=== PATIENT | female | born 1955 | race Caucasian/White ===

== ENCOUNTER 2017-10-22 10:59 | Outpatient (CLI) | payer OTHER | END 2017-10-22 11:00 | disposition home or self-care (01) | LOC: BICMAMMO 10:59 | PROVIDERS: ATTEND Family Medicine | DX: Z12.31 Encounter for screening mammogram for malignant neoplasm of breast (principal); Z80.3 Family history of malignant neoplasm of breast | CPT/HCPCS: 77063; 77067 ==

== ENCOUNTER 2020-05-31 06:42 | Outpatient (CLI) | payer MEDICARE, OTHER ==
[2020-06-01 03:05] LABS: SARS-CoV-2 MS2 Positive; SARS-CoV-2 N Gene Negative; SARS-CoV-2 S Gene Negative; SARS-CoV-2 by NAA Not Detected (NotDetected); SARS-CoV-2 orf1ab Negative
== END 2020-05-31 06:43 | disposition home or self-care (01) ==
LOC: LABBT 06:42
PROVIDERS: ATTEND Ophthalmology Retina Specialist
DX: H54.7 Unspecified visual loss (principal); Z20.828 Contact with and (suspected) exposure to other viral communicable diseases
CPT/HCPCS: 87635; U0003

== ENCOUNTER 2020-06-05 08:56 | Day surgery (SDC) | payer MEDICARE, OTHER ==
[2020-06-04 10:22] VITALS: BMI 39.1
[~2020-06-05 08:56] MED LIST: EPINEPHrine 0.3 MG in Ophthalmic Irrigation Solution 500 ML IRR SCH
[2020-06-05] MEDS ORDERED: Cyclopentolate 1% Opth Drop 2 ML BOT ONE ×2 (09:20→09:27)
[2020-06-05] MEDS ORDERED: Phenylephrine 2.5% Ophth Soln 5 ML BOT ONE ×2 (09:20→09:26)
[2020-06-05] MEDS ORDERED: PHENYLEPHRINE-NS 100 MCG/ML 10 ML SYRINGE ONE (09:26)
[2020-06-05] MEDS ORDERED: PROPOFOL 20 ML ONE (09:56)
[2020-06-05] MEDS ORDERED: Midazolam HCl 2 mg/2 ml Vial ONE (09:56)
[2020-06-05] MEDS ORDERED: Maxitrol 0.1% Opth Oint 3.5 GM TUBE ONE (11:39)
[2020-06-05] MEDS ORDERED: Bupivacaine PF 0.75% SDV 10 ML ONE (11:39)
[2020-06-05] MEDS ORDERED: Lidocaine 4% PF 5 ML AMP ONE (11:39)
[2020-06-05] MEDS ORDERED: CEFAZOLIN 1 GM VIAL ONE (11:39)
[2020-06-05] MEDS ORDERED: Triamcinolone 40 MG/ML VIAL ONE (11:39)
[2020-06-05] MEDS ORDERED: Lidocaine 1% PF 5 ML VIAL ONE (11:39)
[2020-06-05] MEDS ORDERED: Indocyanine Green 25 MG/10 ML VIAL ONE (11:39)
--- NOTE | 2020-06-06 07:54 | OP ---
DATE OF PROCEDURE: 06/05/2020 PREOPERATIVE DIAGNOSES: 1. Tractional retinal detachment, right eye. 2. Epiretinal membrane, right eye. POSTOPERATIVE DIAGNOSES: 1. Tractional retinal detachment, right eye. 2. Epiretinal membrane, right eye. PROCEDURES PERFORMED: 1. 25-gauge pars plana vitrectomy, right eye. 2. Tractional retinal detachment repair, right eye. 3. Epiretinal membrane removal, right eye. 4. Panretinal photocoagulation, Endolaser, right eye. ESTIMATED BLOOD LOSS: None. SPECIMENS REMOVED: None. COMPLICATIONS: None. ANESTHESIA: MAC with sub-Tenon's block. DESCRIPTION OF PROCEDURE: The patient was identified in the preoperative holding area, the correct eye being the right eye was marked for surgery. The patient was taken to the operating room, where MAC anesthesia was induced. The right eye was prepped and draped in the usual sterile ophthalmic fashion for surgery. A wire-clip lid speculum was placed. An inferonasal conjunctival peritomy was fashioned with Mark scissors for administration of sub-Tenon's block. The block consisted of 1:1 ratio of 4% lidocaine and 0.75% Marcaine. Total of 5 mL was administered. A standard 25-gauge pars plana vitrectomy platform was fashioned with trocars placed approximately 4 mm from the limbus. The infusion was noted to be within the vitreous cavity prior to being turned on to an infusion pressure of 30 mmHg. The light pipe and microvitrector were introduced in the eye under visualization of the BIOM viewing system. macular tractional detachment as well as nasal tractional retinal detachment was noted. This was caused by proliferative diabetic retinopathy. A careful core and peripheral shave vitrectomy were performed to the safest extent possible. The microvitrector was used to remove any detachment from the vitreous to the fullest extent possible. The gently delaminated and segmented with use of microvitrector. The Jairon ILM forceps were additionally used to remove the supranasal macular fibrosis gently peeling towards the optic nerve, which allowed for significant relaxation of the retina. Following tractional retinal detachment repair, the ICG dye was used to stain the internal limiting membrane. The Jairon ILM forceps was subsequently used to remove the epiretinal membrane and internal limiting membrane approximately 2 disk diameters in radius circumferentially. Following peeling, the microvitrector was reintroduced in the eye to remove any residual vitreous debris. The Endolaser was used by panretinal photocoagulation in the typical fashion with sparing of the 3 o'clock and 9 o'clock meridians. This laser was used to supplement the pre-existing laser. The cannulas were sequentially removed. All sclerotomies were noted to be watertight. Subconjunctival Ancef and Kenalog were injected. The wire clip lid speculum was removed followed by application of TobraDex ophthalmic ointment and a light patch and shield. The patient tolerated the procedure well and was taken to outpatient recovery area in good condition. Job ID: [id number]
== END 2020-06-05 12:07 | disposition home or self-care (01) ==
LOC: SDC 08:56
PROVIDERS: ATTEND Ophthalmology Retina Specialist
PROC: 08T43ZZ Resection of Right Vitreous, Percutaneous Approach (ICD-10-PCS; principal; 2020-06-05)
PROC: 08QE3ZZ Repair Right Retina, Percutaneous Approach (ICD-10-PCS; 2020-06-05)
DX: H33.41 Traction detachment of retina, right eye (principal); H35.371 Puckering of macula, right eye; Z88.6 Allergy status to analgesic agent; Z88.8 Allergy status to other drugs, medicaments and biological substances
CPT/HCPCS: J0171; J0690; J2001; J2250; J2704; J3301; J3490

== ENCOUNTER 2021-04-03 09:45 | Outpatient (CLI) | payer MEDICARE, OTHER | END 2021-04-03 09:46 | disposition home or self-care (01) | LOC: BICMAMMO 09:45 | PROVIDERS: ATTEND Family Medicine | DX: Z12.31 Encounter for screening mammogram for malignant neoplasm of breast (principal) | CPT/HCPCS: 77063; 77067 ==

== ENCOUNTER 2022-04-24 10:10 | Outpatient (CLI) | payer MEDICARE, OTHER | END 2022-04-24 10:11 | disposition home or self-care (01) | LOC: BICMAMMO 10:10 | PROVIDERS: ATTEND Family Medicine | DX: Z12.31 Encounter for screening mammogram for malignant neoplasm of breast (principal); Z80.3 Family history of malignant neoplasm of breast | CPT/HCPCS: 77063; 77067 ==

== ENCOUNTER 2023-06-04 12:19 | Outpatient (CLI) | payer MEDICARE, OTHER | END 2023-06-04 12:20 | disposition home or self-care (01) | LOC: BICMAMMO 12:19 | PROVIDERS: ATTEND Family Medicine | DX: Z12.31 Encounter for screening mammogram for malignant neoplasm of breast (principal); Z80.3 Family history of malignant neoplasm of breast | CPT/HCPCS: 77063; 77067 ==

== ENCOUNTER 2024-06-16 10:28 | Outpatient (CLI) | payer MEDICARE, OTHER | END 2024-06-16 10:29 | disposition home or self-care (01) | LOC: BICMAMMO 10:28 | PROVIDERS: ATTEND Family Medicine | DX: Z12.31 Encounter for screening mammogram for malignant neoplasm of breast (principal); Z80.3 Family history of malignant neoplasm of breast | CPT/HCPCS: 77063; 77067 ==